=== PATIENT | female | born 1970 ===

== ENCOUNTER → 2021-01-26 08:06 | Outpatient (BNVA) | payer BC, SELFPAY | PROVIDERS: PCP Internal Medicine; Visit Provider Advanced Practice Midwife ==

== ENCOUNTER 2021-03-11 16:29 | Outpatient (REF) | payer BC, SELFPAY ==
--- NOTE | ~2021-03-11 | MM_ITS ---
EXAMINATION: MM SCREENING DIGITAL BREAST TOMOSYNTHESIS, BILATERAL CLINICAL INFORMATION: Screening. Asymptomatic. Prior history reduction mammoplasty. Family history breast cancer, mother. The lifetime risk of breast cancer based on the Tyrer-Cuzick Model is 15%. COMPARISON: Outside mammography: 04/23/2016, 01/09/2015 TECHNIQUE: Digital breast tomosynthesis is performed in both the craniocaudal and mediolateral oblique views along with computer-aided detection (CAD). Synthesized 2D images are generated from the tomosynthesis. FINDINGS: There are scattered areas of fibroglandular density (ACR BI-RADS breast composition Category b). Parenchymal pattern is similar to prior outside exams. There is no developing density or interval significant mass or architectural abnormality or abnormal calcifications. Some minor scarring is present consistent with the prior reduction mammoplasty. The axilla and skin contours are unremarkable. MM/MM tomosynthesis screening BI IMPRESSION: No significant changes from prior outside exams. ASSESSMENT: BI-RADS 2: Benign RECOMMENDATION: Routine annual mammography screening. This patient's information was entered into a reminder system with a target due date for their next mammogram.
== END 2021-03-11 16:30 | disposition home or self-care (01) ==
LOC: HO.MAMMO 16:29
PROVIDERS: Visit Provider Internal Medicine
DX: Z12.31 Encounter for screening mammogram for malignant neoplasm of breast (principal)
CPT/HCPCS: 77063; 77067

== ENCOUNTER 2022-01-27 08:51 | Outpatient (REF) | payer BC, SELFPAY ==
[2022-01-29 18:01] LABS: Follicle Stimulating Hormone 137.5 mIU/mL
== END 2022-01-27 08:52 | disposition home or self-care (01) ==
LOC: HO.LAB 08:51
PROVIDERS: PCP Internal Medicine; Visit Provider Advanced Practice Midwife
DX: R23.2 Flushing (principal)
CPT/HCPCS: 36415; 83001

== ENCOUNTER 2023-02-01 08:15 | Outpatient (AMB) | payer BC, SELFPAY ==
--- NOTE | 2023-02-01 08:21 | MHC.OFFVIS ---
Intake Vital Signs 02/01/23 08:23 Height 5 ft 4 in Weight 166 lb BMI 28.5 BP 120/70 Intake Visit Reasons: Annual Intake Note: The patient agreed to use of a nuclear medical tech during this encounter. Scribed for KOJO Espinoza by Hien Beasley nuclear medical tech, on 02/01/2023 at 8:37 am EST. Trial Attorney: Trial Attorney Present (Christine) Allergies No Known Allergies Allergy (Verified 02/01/23 08:23) HPI HPI Comments History of Present Illness Details She is a postmenopausal woman presenting for annual exam. Doing well with no gynecology teacher concerns. Patient admits she tries to eat a healthy diet including Calcium and Vitamin D. She stays active with exercise. Currently sexually active. Denies vaginal itching and irritation. Admits vaginal dryness and is using a vaginal product that she inserts the night before. Denies family hx of colon and ovarian cancer. Last pap smear 06/04/16. Last mammogram 03/11/21. PFSH Medical History Menopausal vaginal dryness Adopted Insomnia Hypertension History of anxiety Ovarian cyst Surgical History History of left oophorectomy Hx of section H/O bilateral breast reduction surgery History of hysterectomy Family History Unknown Adopted Mother History of breast cancer Sarcoidosis Social History Alcohol intake: current Alcohol intake frequency: a few times a week Alcohol type: wine Patient Tobacco Use Status: Never used Tobacco Sexual orientation: Straight/Heterosexual Gender identity: Female Female Reproductive History Menstrual Menopause type: surgical Total pregnancies: 3 Full term: 2 Number of Living Children: 2 Date of last pap smear: 06/04/16 (neg pap and hpv) Date of Mammogram: 03/11/21 (Birad 2) Physical Exam Vital Signs: Last Vital Signs BP 120/70 02/01/23 08:23 BMI result Body Mass Index 28.5 Const General: cooperative, healthy appearing, no acute distress, well developed and alert Orientation/consciousness: patient oriented x3 HEENT Head: Yes normal to inspection Eyes General: appearance normal, both eyes and all related structures Neck Neck: Yes normal visual inspection Thyroid: Thyroid normal Chest Other: bilateral breast reconstruction scarring Chest palpation & inspection: normal inspection of the chest Breast/axilla inspection: normal inspection of the breasts (no puckering, dimpling, peau de orange, retraction, discharge, masses) Breast/axilla palpation: normal palpation of the breasts Resp Effort & Inspection: normal respiratory effort GI Inspection: Yes normal to inspection Palpation (GI): Soft to palpation (to palpation) Rectal Exam - Female: deferred General: Yes bladder normal to inspection External Female Exam: normal external appearance and normal appearance of the urethra Speculum Exam - Vagina: normal appearance of the vagina, normal palpation, normal vaginal discharge and other Speculum Exam - Cervix: Cervix absent and Other cervical findings present (vag cuff; no lesions no nodules) Bimanual exam- vagina & uterus: normal palpation and uterus absent Bimanual Exam- Adnexa, other: normal adnexae and no masses Skin General skin exam: no rashes or lesions noted Neuro General: patient oriented x3 Cognition (Neuro): normal cognition Extrem General: Yes normal to inspection Psych Attitude: cooperative Thought process: Normal thought process present Assessment & Plan Assessment & Plan (1) Encounter for well woman exam: Code(s): Z01.419 - Encounter for gynecological examination (general) (routine) without abnormal findings Plan: Discussed: Current recommendations for pap smears per ASCCP guidelines. Breast awareness and periodic self breast exams. Encouraged yearly mammograms. Maintaining a healthy lifestyle including a well balanced diet including Calcium and Vitamin D and routine exercise. All of her questions and concerns were addressed to the best of my ability. RTO in 1 year for AG. (2) Menopausal vaginal dryness: Code(s): N95.1 - Menopausal and female climacteric states Plan: Recommend Replens (moisturizer or lubricant), KY jelly, Astroglide or coconut oil for vaginal dryness. Orders: Orders MM tomosynthesis screening BI Today Z12.31 - Encounter for screening mammogram for malignant neoplasm of breast Coding Level of Care Code Est Pt Prev Care 40-64y(74890) Diagnoses Encounter for well woman exam Z01.419 Menopausal vaginal dryness N95.1
[2023-02-01 08:23] VITALS: BP 120/70; BMI 28.5
== END 2023-02-01 08:54 | disposition home or self-care (01) ==
PROVIDERS: Visit Provider Advanced Practice Midwife
DX: Z01.419 Encounter for gynecological examination (general) (routine) without abnormal findings (principal); N95.1 Menopausal and female climacteric states
CPT/HCPCS: 99396

== ENCOUNTER → 2023-02-01 08:15 | Outpatient (BNVA) | payer BC, SELFPAY | PROVIDERS: Visit Provider Advanced Practice Midwife ==

== ENCOUNTER 2023-02-05 08:51 | Outpatient (REF) | payer BC, SELFPAY ==
--- NOTE | ~2023-02-05 | MM_ITS ---
EXAMINATION: MM SCREENING DIGITAL BREAST TOMOSYNTHESIS, BILATERAL CLINICAL INFORMATION: Screening. Asymptomatic. COMPARISON: Mammography: This study is compared with prior exams dating back to 2016. TECHNIQUE: Digital breast tomosynthesis is performed in both the craniocaudal and mediolateral oblique views along with computer-aided detection (CAD). Synthesized 2D images are generated from the tomosynthesis. FINDINGS: The breasts are almost entirely fatty (ACR BI-RADS breast composition Category a). There are no significant masses, abnormal calcifications, or other abnormalities. MM/MM tomosynthesis screening BI IMPRESSION: No mammographic evidence of malignancy. ASSESSMENT: BI-RADS BI-RADS 1 - Negative RECOMMENDATION: Routine annual mammography screening. 1 year F/U This examination should not preclude the clinical evaluation of a suspicious palpable abnormality. This patient's information was entered into a reminder system with a target due date for their next mammogram.
== END 2023-02-05 08:52 | disposition home or self-care (01) ==
LOC: HO.MAMMO 08:51
PROVIDERS: Referring Provider Advanced Practice Midwife; Visit Provider Internal Medicine
DX: Z12.31 Encounter for screening mammogram for malignant neoplasm of breast (principal)
CPT/HCPCS: 77063; 77067

== ENCOUNTER → 2023-02-05 09:00 | Outpatient (BNV) | payer BC, SELFPAY | PROVIDERS: Referring Provider Advanced Practice Midwife; Visit Provider Radiology Diagnostic Radiology | DX: Z12.31 Encounter for screening mammogram for malignant neoplasm of breast (principal) | CPT/HCPCS: 77063; 77067 ==

== ENCOUNTER 2024-02-07 09:52 | Outpatient (AMB) | payer BC, SELFPAY ==
--- NOTE | 2024-02-07 09:54 | A.OFFVIS_ITS ---
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 She is doing well with no concerns. Attempting to eat a healthy diet with calcium and vitamin D and stays active with exercise. Currently sexually active. Admits to vaginal dryness uses Bonofide, somewhat helpful. Hysterectomy due to fibroids and heavy bleeding. Last mammogram; 2022. Colonoscopy is UTD. Patient is adopted. [facility] Medical History (Updated 02/07/24 @ 10:08 by Lianne Nance CNM) Menopausal vaginal dryness Adopted Insomnia Hypertension History of anxiety Ovarian cyst Surgical History (Updated 02/07/24 @ 10:02 by CHELSEA Tellez) History of left oophorectomy Hx of section H/O bilateral breast reduction surgery History of hysterectomy Family History Unknown Adopted Mother History of breast cancer Sarcoidosis Social History Alcohol intake: current Alcohol intake frequency: a few times a week Alcohol type: wine Patient Tobacco Use Status: Never used Tobacco Sexual orientation: Straight/Heterosexual Gender identity: Female Female Reproductive History Menstrual Menopause type: surgical Total pregnancies: 3 Full term: 2 Number of Living Children: 2 Date of last pap smear: 06/04/16 (neg pap and hpv) Date of Mammogram: 02/05/23 (Birad 1) Review of Systems Const All systems reviewed & are unremarkable except as noted in HPI and below Reports as per HPI Eyes Reports no additional complaints ENT Reports no additional complaints Card Reports no additional complaints Resp Reports no additional complaints GI Reports as per HPI and Reports no additional complaints Reports as per HPI Musc Reports no additional complaints Skin/Breast Reports as per HPI Neuro Reports no additional complaints Psych Reports no additional complaints Endo Reports no additional complaints Wolf/Lymph Reports no additional complaints Aller/Immun Reports no additional complaints Physical Exam Vital Signs: Last Vital Signs BP 120/72 02/07/24 09:59 BMI result Body Mass Index 25.4 Const General: cooperative, healthy appearing, no acute distress, well developed and alert Orientation/consciousness: patient oriented x3 HEENT Head: Yes normal to inspection Eyes General: appearance normal, both eyes and all related structures Neck Neck: Yes normal visual inspection Thyroid: Thyroid normal Chest Other: Bilateral breast reduction scarring Chest palpation & inspection: normal inspection of the chest and other (no puckering, dimpling, peau de orange, retraction, discharge, masses) Breast/axilla inspection: normal inspection of the breasts Breast/axilla palpation: normal palpation of the breasts Resp Effort & Inspection: normal respiratory effort GI Inspection: Yes normal to inspection Palpation (GI): Soft to palpation Rectal Exam - Female: deferred General: Yes bladder normal to palpation External Female Exam: normal external appearance and normal appearance of the urethra Speculum Exam - Vagina: normal appearance of the vagina, normal palpation, normal vaginal discharge and vagina atrophic (Scattered petechiae) Speculum Exam - Cervix: Cervix absent (Vaginal cuff no lesions or nodules) Bimanual exam- vagina & uterus: normal bimanual exam, normal palpation, bladder normal to palpation and uterus absent Bimanual Exam- Adnexa, other: no masses Skin General skin exam: no rashes or lesions noted Rashes: no rashes Neuro General: patient oriented x3 Cognition (Neuro): normal cognition Extrem General: Yes normal to inspection Psych Attitude: cooperative Thought process: Normal thought process present Assessment & Plan Assessment & Plan (1) Encounter for well woman exam with routine gynecological exam: Code(s): Z01.419 - Encounter for gynecological examination (general) (routine) without abnormal findings Category: Medical (2) Menopausal vaginal dryness: Code(s): N95.1 - Menopausal and female climacteric states Category: Medical (3) Vaginal atrophy: Code(s): N95.2 - Postmenopausal atrophic vaginitis Plan Discussed: Current recommendations for pap smears per ASCCP guidelines. Breast awareness, periodic self breast exams and yearly mammogram. Maintain a healthy lifestyle, well balanced diet including Calcium 1,200 mg and Vitamin D 600 IU daily, and routine exercise. Vaginal atrophy-OTC treatments including current method, Replens moisturizer, topical estrogen-consider if needed would need a follow up consult appointment. We will speak to her who is a pharmacist. Patient verbalizes understanding and agrees to the plan of care. She was given opportunity to ask questions and all questions were answered to the best of my ability. RTO in 1 year for annual curriculum consultant exam. This note is constructed using voice recognition software. While every effort has been made to ensure accuracy, wind energy engineer errors may have been included. Orders: Orders MM tomosynthesis screening BI Today Z12.31 - Encounter for screening mammogram for malignant neoplasm of breast Coding Level of Care Code Est Pt Prev Care 40-64y(49839) Diagnoses Encounter for well woman exam with routine gynecological exam Z01.419 Menopausal vaginal dryness N95.1 Vaginal atrophy N95.2
[2024-02-07 09:59] VITALS: BP 120/72; BMI 25.4
== END 2024-02-07 12:21 | disposition home or self-care (01) ==
PROVIDERS: PCP Internal Medicine; Visit Provider Advanced Practice Midwife
DX: Z01.419 Encounter for gynecological examination (general) (routine) without abnormal findings (principal); N95.1 Menopausal and female climacteric states; N95.2 Postmenopausal atrophic vaginitis
CPT/HCPCS: 99396

== ENCOUNTER → 2024-02-07 09:52 | Outpatient (BNVA) | payer BC, SELFPAY | PROVIDERS: PCP Internal Medicine; Visit Provider Advanced Practice Midwife ==

== ENCOUNTER 2024-02-11 08:41 | Outpatient (REF) | payer BC, SELFPAY ==
--- NOTE | ~2024-02-11 | MM_ITS ---
EXAMINATION: MM SCREENING DIGITAL BREAST TOMOSYNTHESIS, BILATERAL CLINICAL INFORMATION: Screening. Asymptomatic. COMPARISON: Mammography: Comparison is made with available priors TECHNIQUE: Digital breast mammography with tomosynthesis is performed in both the craniocaudal and mediolateral oblique views along with computer-aided detection (CAD). FINDINGS: There are scattered areas of fibroglandular density (ACR BI-RADS breast composition Category b). There are no significant masses, abnormal calcifications, or other abnormalities. MM/MM tomosynthesis screening BI IMPRESSION: No mammographic evidence of malignancy. ASSESSMENT: BI-RADS BI-RADS 1 - Negative RECOMMENDATION: Routine annual mammography screening. 1 year F/U This examination should not preclude the clinical evaluation of a suspicious palpable abnormality. This patient's information was entered into a reminder system with a target due date for their next mammogram. Electronically signed by: Ivonne Stuart DO 02/22/2024 04:22 PM EDT
== END 2024-02-11 08:42 | disposition home or self-care (01) ==
LOC: HO.MAMMO 08:41
PROVIDERS: PCP Internal Medicine; Visit Provider Internal Medicine
DX: Z12.31 Encounter for screening mammogram for malignant neoplasm of breast (principal)
CPT/HCPCS: 77063; 77067

== ENCOUNTER → 2024-02-11 08:45 | Outpatient (BNV) | payer BC, SELFPAY | PROVIDERS: PCP Internal Medicine; Visit Provider Internal Medicine | DX: Z12.31 Encounter for screening mammogram for malignant neoplasm of breast (principal) | CPT/HCPCS: 77063; 77067 ==

== ENCOUNTER 2025-02-16 09:53 | Outpatient (REF) | payer BC, SELFPAY ==
--- OUTSIDE RECORDS SUMMARY | 2025-02-16 09:55 | XMS_ITS | Encounter Summary ---
Author Organization [facility] Address [address] [place] [address] Phone Care Team Providers Care Inspector Insulation Name Role Phone Jessica Wallace PATIENT CARE ASSISTANT Unavailable [phone] Sam Ch MD Unavailable Joe Godoy MD Unavailable Cassy Haas STREET SUPERVISOR Unavailable Jessie Joseph MD Unavailable Jessie Arreola PATIENT CARE ASSISTANT Unavailable [phone] Riky Verde MD Unavailable Gabbi Yeager PATIENT CARE ASSISTANT Unavailable [phone] Joe Godoy MD Primary Care Provider Joe Godoy MD Unavailable Lianne Nance I CNM Unavailable Encounter Details Date Type Department Care Team (Late st Contact Info) Description 08/18/2017 Ancillary Orders Virtual Department [address] [place] [address] [phone] Rigoberto Baugh MD [address] [place] [address] [email or web address] Elevated LFTs; Abnormal results of liver function studies Social History Tobacco Use Types Packs/Day Years Used Date Smoking Tobacco: Former Cigarettes 0.3 4 Smokeless Tobacco: Never Comments:quit in 1993 Alcohol Use Standard Drinks/Week Comments Yes 2 (1 standard drink = 0.6 oz pur e alcohol) Comments Unknown Sex and Gender Information Value Date Recorded Sex Assigned at Not on file Legal Sex Female 9:33 PM EDT Gender Identity Not on file Sexual Orientation Not on file documented as of this encounter Plan of Treatment Upcoming Encounters Date Type Department Care Team (Late st Contact Info) Description 03/06/2025 9:30 AM EDT Office Visit [facility] Internal Medicine [address] [place] [address] Joe Godoy MD [address] [place] [address] [email or web address] documented as of this encounter Visit Diagnoses Diagnosis Elevated LFTs Other abnormal blood chemistry Abnormal results of liver function studies Nonspecific abnormal results of liver function study documented in this encounter Care Teams Inspector Insulation Relationship Specialty Start Date End Date Joe Godoy MD [address] [place] [address] [email or web address] PCP - General 02/21/17 Jessica Wallace NP [address] [place] [address] [email or web address] Historical LMR Provider 02/21/17 Sam Ch MD [address] [place] [address] [address], [address] [place] [address] Historical LMR Provider 02/21/17 05/16/21 Joe Godoy MD [address] [place], [place] Historical LMR Provider 02/21/17 08/23/21 luz Cassy SaludRANDOLPH [address] [facility]. [address], [address] [place] [address] Historical LMR Provider 02/21/17 05/16/21 Jessie Joseph MD [address] [facility] [address], [address] [place] [address] Historical LMR Provider 02/21/17 05/16/21 Jessie Arreola, CAROLE [address] [place] [address] [address] [place] [address] Historical LMR Provider 02/21/17 2 Riky Verde MD [address] [place] [address] [address] [place] [address] Historical LMR Provider 02/21/17 2 Gabbi Yeager NP [address] [place] [address] 6 [place] [address] Historical LMR Provider 02/21/17 08/23/21 Joe Godoy MD [address] [place] [address] Insurance Assigned Provider 08/13/23 Lianne Nance CNM [address] [place] [address] [place] [address] Obstetrics 08/24/21 documented as of this encounter Additional Source Comments The information contained in this document represents components of the legal health record. It is not the complete legal health record.[facility]
--- OUTSIDE RECORDS SUMMARY | 2025-02-16 09:55 | XMS_ITS | Encounter Summary ---
Author Organization [facility] Address [address] [place] [address] Phone Care Team Providers Care Speech Clinician Name Role Phone Joe Godoy MD Primary Care Provider [phone] Joe Godoy MD Unavailable [phone] Lianne Nance I [facility] Unavailable [phone] Reason for Visit * Reason Onset Date Comments Referral 03/07/2024 Pt is requesting a referral to see ophthalmology Encounter Details Date Type Department Care Team (Late st Contact Info) Description 03/07/2024 Telephone [facility] Internal Medicine [address] [place] [address] Joe Godoy MD [address] [place] [address] [email or web address] Referral (Pt is requesting a referral to see ophthalmology) Social History Tobacco Use Types Packs/Day Years Used Date Smoking Tobacco: Former Cigarettes 0.3 4 1 990 - 1993 Smokeless Tobacco: Never Alcohol Use Standard Drinks/Week Comments Yes 2 (1 standard drink = 0.6 oz pur e alcohol) Child or Family Care Answer Date Record ed Do you have problems with on e of the following making it difficult for you to work, study, or receive health care? No 11/01/2023 Education Answer Date Recorded Are you interested in help w ith more adult education (for example, completing high school, GED, job training, learning the Syriac language, technical skills, or developing parenting skills)? No 11/01/2023 Are you concerned about learning? Not on file 11/01/2023 No 11/01/2023 Yes 11/01/2023 Food Answer Date Recorded Within the past 6 months we worried whether our food would run out before we got money to buy more. Never True 11/01/2023 Within the past 6 months the food we bought just didn't last and we didn't have enough money to get more. Never True Residential Stability Answer Date Recor ded What is your housing situation today? I have pat verma 11/01/2023 How many times have you moved in the past 12 tue th? One time 11/01/2023 Paying for Meds Answer Date Recorded Do you have trouble paying for medicines? No 11/01/2023 Paying Utility Bills Answer Date Record ed Do you have trouble paying your heating or elect ricity bill? No 11/01/2023 Transportation Answer Date Recorded Has the lack of transportati on kept you from medical appointments or from getting medications? No 11/01/2023 Unemployment Answer Date Recorded Are you currently unemployed or working on a part-time or temporary basis, and looking for work? No 08/24/2021 Digital Access Answer Date Recorded No 11/01/2023 Yes 11/01/2023 Do you have reliable internet access at home? Ye s 11/01/2023 Do you have a device (e.g., phone, tablet, computer) with a working camera? Yes 11/01/2023 Intimate Partner Violence Answer Date R ecorded Denied Basic Needs Not on file 11/01/2023 In the past 12 months have y ou been in a relationship with a person who hurts, threatens, or tries to control you? No 11/01/2023 Worried food would run out Not on file 10/31 In the past 12 months have y ou been in a relationship with a person who hurts, threatens, or tries to control you? No 11/01/2023 Comments No Sex and Gender Information Value Date Recorded Sex Assigned at Not on file Legal Sex Female 9:33 PM EDT Gender Identity Not on file Sexual Orientation Not on file documented as of this encounter Progress Notes * Aniket Johnson - 03/13/2024 8:14 AM EST Patient scheduled with Melissa for 03/14 * Joe Godoy MD - 03/12/2024 7:35 PM EST How does she know it is a nodule? ENT is booking out 6-9 months currently. Can come in and see Melissa. * Ce Alvarez RN - 03/12/2024 7:15 AM EST Pended * Frederick Milligan - 03/07/2024 3:25 PM EDT Referral Request 1. Name of the office where the patient has been seen/requests to be seen: [facility] 2. Reason for referral/specialist appointment and the diagnosis code: Throat 2A. Have you seen this provider before for this same problem? YES/NO: no 2B. If this is a new problem, is your PCP aware of your symptoms? YES/NO: no 3. Date of appointment(s):TBD 4. Name of specialist provider: Dr. Huber Camacho 5. NPI number to enter for referral authorization (enter n/a if not available): [id number] 6. Number of visits requested for referral: TBD 7. Fax number of specialist office to send referral authorization: [phone] [facility] Call Center CSS Agent (Please do not reply to this user, as this inbox is not monitored.) Thank you documented in this encounter Plan of Treatment Upcoming Encounters Date Type Department Care Team (Late st Contact Info) Description 03/06/2025 9:30 AM EDT Office Visit [facility] Internal Medicine [address] [facility] [address] Joe Godoy MD [address] [place] [address] [email or web address] documented as of this encounter Visit Diagnoses Not on filedocumented in this encounter Additional Health Concerns Assessment Noted Time PHQ-9 Depression Total Score: 11 023 8:24 AM EDT PHQ-2 Depression Total Score: 0 11/01/19 24 11:12 AM EDT documented as of this encounter Care Teams Speech Clinician Relationship Specialty Start Date End Date Joe Godoy MD [address] [place] [address] PCP - General 02/21/17 Joe Godoy MD [address] [place] [address] Insurance Assigned Provider 08/13/23 Lianne Nance CNM [address] [place] [address] [place] [address] Obstetrics 08/24/21 documented as of this encounter Additional Source Comments The information contained in this document represents components of the legal health record. It is not the complete legal health record.[facility]
--- OUTSIDE RECORDS SUMMARY | 2025-02-16 09:55 | XMS_ITS | Patient Health Record ---
Author Organization [facility] Address [address] [place] [address] Care Team Providers Care Soft Top Installer Name Role Phone Joe Godoy MD Primary Care Provider Pedro Bernard Unavailable [phone] Reason For Referral No Information Medications Medication SIG (Take, Route, Frequency, Duration) Notes Start Date End Date Status Magnesium Oxide 400 MG 1 tablet as neede d Orally Once a day; Duration: 30 day(s) Active Ibuprofen 800 MG 1 tablet with food o r milk as needed Orally every 8 hrs Active Ipratropium [place] 0.06 % 2 sprays in e ach nostril Nasally Three times a day; Duration: 4 day(s) Active traZODone HCl 50 MG as directed Orally Active LORazepam 1 MG 1 tablet at bedtime as needed Orally Once a day Active Flonase Active Joint Health Active CeleXA 40 MG 0.5 tablet Orally On ce a day; Duration: 30 day(s) Active Multivitamin Active NIFEdipine ER 30 MG 1 tablet on an empty stomach Orally Once a day; Duration: 30 day(s) Active Triamcinolone Acetonide 0.1 % 1 application Externally Two times a Week Active Zolpidem Tartrate 10 MG 1 tablet at bedt kevin as needed Orally Once a day Active Adderall XR 30 MG 1 capsule in the mor amanda Orally Once a day Active Ketoconazole 2 % 1 application Switching Operator ally Once a day Active Citalopram Hydrobromide 40 MG 0.5 tablet Orally Once a day; Duration: 30 day(s) Active Losartan Potassium A ctive Losartan Potassium 25 MG 1 tablet Orally Once a day; Duration: 30 day(s) Active Fluticasone Propionate 50 MCG/ACT 1 spray in each nostril Nasally Once a day; Duration: 30 day(s) Active NIFEdipine Active Social History Tobacco Use: Social History Observation Description Date Details (start date - stop date) Former Smoker NA - 05/09/1993 Tobacco Use/Smoking Question Answer Notes Are you a: former smoker When did you stop smoking? 05/09/1993 Additional Findings: Tobacco Non-User Ex-cigaret te smoker Alcohol Screen Question Answer Notes Did you have a drink contain ing alcohol in the past year? Yes How often did you have a dri nk containing alcohol in the past year? 2 to 3 times a week (3 points) Points 3 Interpretation Positive Plan Of Treatment Pending Test Test Name Order Date X ray : Foot, right 3V 12/22/2021 Insurance Providers Payer Name Payer Address Payer Phone Subscriber Number Group Number Insured Name Patient Relationship to Insured Coverage Start Date Coverage End Date [facility] [address] [place] [address] [id number] Emanuel Rivers Self - patient is the insured Medical (General) History Medical History History ICD Code Hypertension, benign Depression Mixed Hyperlipidemia Vitamin D deficiency malaise fatigue Surgical History Surgery Date(Month/Year) 200,2002 breast reduction 2009 hysterectomy 2019 Dermoid cyst 2016
--- OUTSIDE RECORDS SUMMARY | 2025-02-16 09:55 | XMS_ITS | Encounter Summary ---
Author Organization [facility] Address [address] [place] [address] Phone Care Team Providers Care Budget Controller Name Role Phone Joe Godoy MD Primary Care Provider [phone] Joe Godoy MD Unavailable [phone] Lianne Nance I [facility] Unavailable [phone] Reason for Visit * Reason Onset Date Comments Medication Refill 02/12/2025 CSRP Encounter Details Date Type Department Care Team (Late st Contact Info) Description 02/12/2025 Refill [facility] Internal Medicine [address] [place] [address] Joe Godoy MD [address] [place] [address] [email or web address] Medication Refill (CSRP) Social History Tobacco Use Types Packs/Day Years Used Date Smoking Tobacco: Former Cigarettes 0.3 4 1 990 - 1994 Smokeless Tobacco: Never Alcohol Use Standard Drinks/Week [...] high school, GED, job training, learning the [place] language, technical skills, or developing parenting skills)? [...] you moved in the past 12 tue ths? One time 11/01/2023 Paying for Meds Answer [...] as of this encounter Progress Notes * Nigel Mansfield MA - 02/12/2025 9:00 AM EDT Images from the original note were not included. CSRP Adderall XR 30 mg Due: Today Received: 4 weeks ago Patient reminder Nigel Mansfield MA P [facility] See TE 01/14/25, Rx to be filled on 01/22/25Rx Care Gap Status - Instructions for Clinical Staff (prescriber discretion applies): > Mismatch review guide > N/a - No action needed Visit Info Last visit: 05/08/2024 Joe Godoy MD - Internal Medicine [facility] > Requested f/u: Return in about 6 months (around 11/05/2024) for Annual physical. Upcoming visit: 03/06/2025 Joe Godoy MD - Internal Medicine [facility] ACTIONS TAKEN BY Nigel Mansfield MA - Checked PDMP/[place]. Non-Opioid Controlled Substance Without PDMP Rx Protocol - dextroamphetamine/amphetamine Renewal is at prescriber discretion. Visit in the past 12 months: Yes documented in this encounter Plan of Treatment Upcoming Encounters Date Type Department Care Team (Late st Contact Info) Description 03/06/2025 9:30 AM EDT Office Visit [facility] Internal Medicine [address] [place] [address] Joe Godoy MD [address] [place] [address] [email or web address] documented as of this encounter Visit Diagnoses Diagnosis Attention deficit disorder Attention deficit disorder without mention of hyperactivity documented in this encounter Additional Health Concerns Assessment Noted Time PHQ-9 Depression Total Score: 11 08/30/ 023 8:24 AM EDT PHQ-2 Depression Total Score: 0 11/01/19 24 11:12 AM EDT documented as of this encounter Care Teams Budget Controller Relationship Specialty Start Date End Date Joe Godoy MD [address] [place] [address] [email or web address] PCP - General 02/21/17 Joe Godoy MD [address] [place] [address] [email or web address] Insurance Assigned Provider 08/13/23 Lianne Nance CNM [address] [place] [address] [place] [address] Obstetrics 08/24/21 documented as of this encounter Additional Source Comments The information contained in this document represents components of the legal health record. It is not the complete legal health record.[facility]
--- OUTSIDE RECORDS SUMMARY | 2025-02-16 09:55 | XMS_ITS | Clinical Summary ---
Author Organization [facility] Address [address] [address] Phone Care Team Providers Care Medical Engineer Name Role Phone Joe Godoy MD Primary Care Provider [phone] Joe Godoy MD Unavailable Lianne Nance I [facility] Unavailable [phone] Allergies Active Allergy Reactions Criticality Noted Date Comments Amlodipine Unknown 05/06/2017 Lisinopril Unknown 05/06/2017 Medications fluticasone propionate (FLONASE) 50 mcg/actuation nasal spray 2 sprays by Nasal route as needed. Active ibuprofen (ADVIL,MOTRIN) 800 MG tablet Take 1 tablet (800 mg total) by mouth every 6 (six) hours as needed for pain (specific location in comments). Take with food 40 tablet 11/28/19 20 Active diclofenac sodium (VOLTAREN) 1 % GelIndications:Nolberto n in both hands,Primary osteoarthritis of both hands Apply 2 g topically 4 (four) times a day. 200 g 2 05/10/19 24 Active Additional Information Patient taking differently:2 g TopicalAs needed, Reported on 03/16/2024 traZODone (DESYREL) 50 MG tablet TAKE 1 TABLET NIGHTLY AT BEDTIME 90 tablet 3 03/15/20 24 Active losartan (COZAAR) 25 MG tabletIndications: Benign essential hypertension TAKE 1 TABLET(25 MG) BY MOUTH DAILY 90 tablet 12/22/19 25 Active NIFEdipine (ADALAT CC) 30 MG 24 hr tablet Take 1 tablet (30 mg total) by mouth daily. 30 tablet 01/23/20 25 Active citalopram (CELEXA) 40 MG tabletIndications: Anxiety Take 1 tablet (40 mg total) by mouth daily. 30 tablet 01/23/20 25 Active dextroamphetamine- amphetamine (ADDERALL XR) 30 MG 24 hr capsuleIndications :Attention deficit disorder Take 1 capsule (30 mg total) by mouth every morning for 28 days. 28 capsule 02/20/20 25 025 Active NIFEdipine (ADALAT CC) 30 MG 24 hr tablet Take 1 tablet (30 mg total) by mouth daily. 90 tablet 3 03/29/20 24 025 Discontin ued(Reord er) citalopram (CELEXA) 40 MG tabletIndications: Anxiety TAKE 1 TABLET DAILY 90 tablet 3 10/06/19 25 025 Discontin ued(Reord er) dextroamphetamine- amphetamine (ADDERALL XR) 30 MG 24 hr capsuleIndications :Attention deficit disorder Take 1 capsule (30 mg total) by mouth every morning for 28 days. 28 capsule 01/23/20 25 025 Discontin ued(Reord er) Active Problems Problem Noted Date Diagnosed Date Dysphagia 03/16/2024 Assessment & Plan (03/16/2024 8:26 AM EST): Longstanding, unchanged despite consistent PPI use. No other contributing factors present. Recommend ENT evaluation. She will note if any particular consistencies of food/drink make symptoms worse/better prior to this visit. If any worsening sx she will follow up with office. If any acutely worsening symptoms will follow up emergently. ARIE (obstructive sleep apnea) 02/20/2022 Hypersomnia 09/21/2021 Malaise and fatigue 04/14/2021 Assessment & Plan (04/14/2021 9:21 AM EST): A post viral syndrome with Covid is very common to have a protracted course of fatigue, let us rule out B12 deficiency, hypothyroidism and anemia as a possible cause. Would encourage the patient to take up yoga again as a form of exercise that will help with the stressors of school which will decrease her dependence on Ativan. The exercise will help also with a normal sleep cycle and might overall reduce the fatigue. She may feel very tired from the exercise but this is a exercise that actually in the long run might help her out of this vicious cycle. Muscle spasm 04/14/2021 Assessment & Plan (04/14/2021 9:19 AM EST): Patient seems to be describing clonic like activity resulting in these spasms. Therefore check electrolytes kidney function and magnesium level. Recommend 400 mg nightly of magnesium to aid with sleep and reduce such symptoms at night. Dermatofibroma 07/11/2020 Assessment & Plan (07/11/2020 4:37 PM EST): This lesion that she presents with left-sided index finger dorsal aspect and proximal to the cuticle bordering on it looks like a dermatofibroma. Possible that it is a basal cell CA but is missing a lot of the traits that we see with BCC. It does not have the rough qualities of a wart. For any type of lesion like this to remove it it would best be used cryotherapy liquid nitrogen. Unfortunately we do not have any here so she may need to see a retail grocer but she can also try the cryotherapy offered at the pharmacy which is usually either based. She will try that and I told her to follow the directions meticulously and do not overuse the ether as I could hurt the surrounding skin tissue. If not we can refer the patient to dermatology for both a second look and cryotherapy. Anxiety 05/06/2017 Assessment & Plan (04/14/2021 9:18 AM EST): Patient should be mindful about the use of the Ativan which of course can cause further fatigue and sleepiness being a sedative. That of course also in conjunction with the citalopram. Edema of both legs 05/06/2017 Essential hypertension 05/06/2017 Gastroesophageal reflux disease 05/06/2017 Hyperhidrosis 05/06/2017 Hyperlipidemia 05/06/2017 Migraine without aura and responsive to treatmen t 05/06/2017 Primary insomnia 05/06/2017 Pure hypercholesterolemia 05/06/2017 Vitamin B12 deficiency 05/06/2017 Vitamin D deficiency 05/06/2017 Resolved Problems Problem Noted Date Diagnosed Date Resolved Date CPAP (continuous positive ai rway pressure) dependence 02/20/2022 11/01/2023 Overactive child 05/06/2017 11/19/2021 Encounters Date Type Department Care Team Description 02/12/2025 Refill [facility] Internal [facility] [address] [place] [address] Joe Godoy MD Medication Refill (CSRP) 01/22/2025 Refill [facility] Internal Medicine [address] [place] [address] Joe Godoy MD Medication Refill 01/14/2025 Refill [facility] Internal [facility] [address] [place] [address] Joe Godoy MD Medication Refill (CSRP) 12/21/2024 Refill [facility] [address] [place] [address] Tiffanie Baez, ALAN Medication Refill 12/17/2024 Refill [facility] [address] [place] [address] Joe Godoy MD Medication Refill (CSRP) 11/19/2024 Refill [facility] Internal [facility] [address] [place] [address] Joe Godoy MD Medication Refill from Last 3 Months Immunizations Immunization Administration Dates Next Due COVID-19 (Pre-02/28) Reese Vaccine, [id number], P F 07/26/2020 Td (adult),2 Lf Tetanus Toxoid, PF, Adsorbed Td, unspecified formulation 05/09/1998 Tdap 05/05/2012 Zoster recombinant 03/03/2024,11/07/2023 Family History * Patient is adopted Medical History Relation Comments Breast cancer Mother Cancer Mother Lung disease Mother Sarcoidosis Mother Alcohol abuse Son 2 Relation Status Comments Father Alive Mother (Age 75) breast cancer and liposarcomadied at 75 y/o d/t Sarcoidosis Son 1 Alive Son 2 Alive Social History Tobacco Use Types Packs/Day Years Used Date Smoking Tobacco: Former Cigarettes 0.3 4 1 990 - 1994 Smokeless Tobacco: Never Tobacco Cessation:Counseling Given: Not Answered Alcohol Use Standard Drinks/Week Comments Yes 2 [...] high school, GED, job training, learning the [place] language, technical skills, or developing parenting skills)? [...] on file Sexual Orientation Not on file Last Filed Vital Signs Vital Sign Reading Time Taken Comments Blood Pressure 120/78 05/08/2024 1:26 PM EST Pulse 82 05/08/2024 1:26 PM EST Temperature 36.4 C (97.5 F) 05/08/2024 1:26 PM EST Respiratory Rate 16 05/08/2024 1:26 PM EST Oxygen Saturation 98% 05/08/2024 1:26 PM EST Inhaled Oxygen Concentration - - Weight 68.3 kg (150 lb 9.6 oz) 05/08/2024 1:26 P M EST Height 159.8 cm (5' 2.91 ) 05/08/2024 1:26 PM ES T Body Mass Index 26.75 05/08/2024 1:26 PM EST Plan of Treatment Upcoming Encounters Date Type Department Care Team (Late st Contact Info) Description 03/06/2025 9:30 AM EDT Office Visit [facility] Internal Medicine [address] [place] [address] Joe Godoy MD [address] [place] [address] [email or web address] Health Maintenance Due Date Last Done Comments HIV ONE-TIME SCREENING (18-65 YEARS) 08/09/1989 COLOGUARD 08/09/2016 FIT TEST 08/09/2016 FOBT 08/09/2016 SIGMOIDOSCOPY 08/09/2016 VIRTUAL COLONOSCOPY 08/09/2016 PAP SMEAR 06/04/2021 06/04/2016 PNEUMOCOCCAL VACCINES (50+ years) (1 of 1 - PCV) 08/09/2021 CREATININE LEVEL 10/31/2024 11/01/2023, , 08/24/2021, Additional history exists DEPRESSION SCREENING 10/31/2024 11/01/2023, 08/31/19 POTASSIUM LEVEL 10/31/2024 11/01/2023, 08/08, 08/24/2021, Additional history exists BLOOD PRESSURE 11/05/2024 05/08/2024 COVID-19 VACCINE ( season) 2025 04/29/2021, 07/26/2020 MAMMOGRAM 02/10/2026 02/11/2024, 01/09, 03/11/2021, Additional history exists COLONOSCOPY 02/16/2026 02/16/2023 COLORECTAL CANCER SCREENING 02/16/2026 SCREENING FOR DIABETES 10/31/2026 11/01/2023, 2023 LIPID PANEL 10/31/2028 11/01/2023, 08/08, 08/30/2022, Additional history exists Adult Td,Tdap Booster 08/30/2032 08/30/2022 , 05/05/2012, 05/09/1998 RSV VACCINE (1 - 1-dose 75+ series) 08/09/2046 HEPATITIS C SCREENING Completed 09/15/2018 , 09/15/2018, 09/16/2017, Additional history exists ZOSTER VACCINES Completed 03/03/2024, 11/07/2023 SMOKING STATUS SCREENING (Once After 26 Yrs) Completed 05/08/2024 HEPATITIS A VACCINES Aged Out No long er eligible based on patient's age to complete this topic HIB VACCINES Aged Out No longer eligi ble based on patient's age to complete this topic MENINGOCOCCAL VACCINES (ACWY) Aged Out No longer eligible based on patient's age to complete this topic MENINGOCOCCAL VACCINES (B) Aged Out N o longer eligible based on patient's age to complete this topic Medical Devices Not on file Procedures Procedure Name Priority Date/Time Associated Diagnosis Comments MAMMOGRAPHY Routine 02/11/2024 11:28 AM EDT LIPID PANEL Routine 11/01/2023 12:11 PM EDT Mixed hyperlipidemia COMPREHENSIVE METABOLIC PANEL Routine 11/01/2023 12:11 PM EDT Mixed hyperlipidemia Benign essential hypertension Impaired fasting glucose COLONOSCOPY FOR RESULT ENTRY ONLY Routine 02/16/2023 4:06 PM EDT HEPATITIS C ANTIBODY, QUALITATIVE Routine 09/15/2018 8:16 AM EDT Liver function abnormality from Last 3 Months or Most Recently Relevant to Health Maintenance Results * MAMMOGRAPHY FOR RESULT ENTRY ONLY (02/11/2024 11:28 AM EDT) us Historical Provider HEALTH MAINTENANCE Final Result * (ABNORMAL) Comprehensive metabolic panel (11/01/2023 12:11 PM EDT) SODIUM 139 133 - 146 mmol/L [facility] POTASSIUM 4.1 3.3 - 5.1 mmol/L [facility] CHLORIDE 102 96 - 108 mmol/L [facility] CO2 24 21 - 35 mmol/L [facility] BUN 12 6 - 19 mg/dL [facility] CREATININE 0.60 0.5 - 1.5 mg/dL [facility] GLUCOSE 116(H) 70 - 99 mg/dL [facility] ALBUMIN 4.8 3.9 - 4.8 g/dL [facility] TOTAL PROTEIN 7.4 6.5 - 8.0 g/dL [facility] CALCIUM 9.8 8.4 - 10.3 mg/dL [facility] ALKALINE PHOSPHATASE 94 39 - 117 U/L [facility] TOTAL BILIRUBIN 1.2 0.0 - 1.2 mg/dL [facility] AST 47(H) 0 - 37 U/L [facility] ALT 36 0 - 40 U/L [facility] GLOBULIN 2.6 1 - 4.8 g/dL [facility] EGFR 108 >59 mL/min/1.7 3m2 [facility] Comment:Estimated glomerular filtration rate calculated using the CKD-EPI refit equation. ANION GAP 17 10 - 20 mmol/L [facility] Blood 11/01/2023 12:1 1 PM EDT 11/01/2023 12:15 PM EDT Joe Godoy MD LAB BLOOD ORDERABLES Final Re sult [address] [address] * (ABNORMAL) Lipid panel (11/01/2023 12:11 PM EDT) HDL 82 mg/dL [facility] Comment: Interpretation <40 mg/dL: Low HDL cholesterol (major risk factor for CHD) Greater than or equal to 60 mg/dL: High HDL cholesterol ( negative risk factor for CHD) HDL - cholesterol is affected by a number of factors, e.g. smoking, excerise, hormones, sex and age. CHOLESTEROL 255(H) 0 - 240 mg/dL [facility] TRIGLYCERIDES 133 30 - 160 mg/dL [facility] LDL 146(H) 50 - 129 mg/dL [facility] Comment: LDL levels in terms of risk for coronary heart disease: <100 mg/dL: Optimal 100-129 mg/dL: Near or above optimal 130-159 mg/dL: Borderline high 160-189 mg/dL: High >190 mg/dL: Very High CARDIAC RISK RATIO 3.1(L) 3.3 - 4.4 C [facility] Blood 11/01/2023 12:1 1 PM EDT 11/01/2023 12:14 PM EDT Joe Godoy MD LAB BLOOD ORDERABLES Final Re sult [address] [address] * HM COLONOSCOPY FOR RESULT ENTRY ONLY (02/16/2023 4:06 PM EDT) us Historical Provider HEALTH MAINTENANCE Final Result * Hepatitis C antibody, qualitative (09/15/2018 8:16 AM EDT) HCV Negative Negative [facility] Comment: This is a screening test and should be confirmed with molecular testing Blood 09/15/2018 8:16 AM EDT 09/15/2018 8:22 AM EDT Joe Godoy MD LAB BLOOD ORDERABLES Final Re [facility] Organization Address City/State/ZIP Co de Phone Number [address] [address] from Last 3 Months or Most Recently Relevant to Health Maintenance [place] [address] [place] [address] [place] [address] [place] [address] [place] [address] [place] [address] [place] [address] [place] [address] [place] [address] [place] [address] Care Teams Medical Engineer Relationship Specialty Start Date End Date Joe Godoy MD [address] [place] [address] [email or web address] PCP - General 02/21/17 Joe Godoy MD [address] [place] [address] [email or web address] Insurance Assigned Provider 08/13/23 Lianne Nance CNM [address] [place] [address] [place] [address] Obstetrics 08/24/21 Additional Source Comments The information contained in this document represents components of the legal health record. It is not the complete legal health record.[facility]
--- OUTSIDE RECORDS SUMMARY | 2025-02-16 09:55 | XMS_ITS | Encounter Summary ---
Author Organization [facility] Address [address] [place] [address] Phone Care Team Providers Care Drafter Automotive Design Layout Name Role Phone Jessica Wallace DUCK FARMER Unavailable [phone] Sam Ch MD Unavailable Joe Godoy MD Unavailable [phone] Cassy Haas HOTEL ROOM ATTENDANT Unavailable Jessie Joseph MD Unavailable Jessie Arreola DUCK FARMER Unavailable Riky Verde MD Unavailable [phone] Gabbi Yeager DUCK FARMER Unavailable [phone] Joe Godoy MD Primary Care Provider Joe Godoy MD Unavailable Lianne Nance I CNM Unavailable [phone] Encounter Details Date Type Department Care Team (Late st Contact Info) Description 09/01/2017 Ancillary Orders Virtual Department [address] [place] [address] Rigoberto Baugh MD [address] [place] [address] [email or web address] Elevated LFTs; Abnormal results of liver function [...] Description 03/06/2025 9:30 AM EDT Office Visit [facility] Internal Medicine [address] [place] [address] Joe Godoy MD [address] [place] [address] [email or web address] documented as of this encounter Results * US ABDOMEN LIMITED RIGHT UPPER QUADRANT (09/01/2017 10:51 AM EDT) Anatomical Region Laterality Modality Abdomen Ultrasound 09/01/2017 11:1 4 AM EDT Impressions 09/01/2017 11:19 AM EDT Mildly hyperechoic liver with small area of more normal liver echogenicity adjacent to gallbladder fossa. Appearance is consistent with fatty infiltration with sparing adjacent to the gallbladder fossa. No evidence of hepatic masses. No other significant changes. POS - [id number] Narrative 09/01/2017 11:19 AM EDT HISTORY: Elevated liver function tests. COMPARISON: Right upper quadrant ultrasound 01/30/2016, CT abdomen 03/04/2011. FINDINGS: A right upper quadrant study is performed. Biliary: The gallbladder appears normal. Proximal common duct normal measuring 4 mm in diameter which is stable from 01/30/2016. Liver: The liver is mildly hyperechoic diffusely very similar to 01/30/2016. Small area of more normal liver echogenicity immediately adjacent to the gallbladder fossa which appears stable from prior ultrasound no findings suspicious for hepatic masses. Liver margins are smooth. Similar prominence of the left lobe. Pancreas: No abnormalities demonstrated. Right Kidney: No abnormalities demonstrated. Procedure Note Polino, Homer R, MD - 09/01/2017 HISTORY: Elevated liver function tests. COMPARISON: Right upper quadrant ultrasound 01/30/2016, CT [id number]. FINDINGS: A right upper quadrant study is performed. Biliary: The gallbladder appears normal. Proximal common duct normalmeasuring 4 mm in diameter which is stable from 01/30/2016. Liver: The liver is mildly hyperechoic diffusely very similar to01/30/2016. Small area of more normal liver echogenicity immediatelyadjacent to the gallbladder fossa which appears stable from priorultrasound no findings suspicious for hepatic masses. Liver margins aresmooth. Similar prominence of the left lobe. Pancreas: No abnormalities demonstrated. Right Kidney: No abnormalities demonstrated. IMPRESSION: Mildly hyperechoic liver with small area of more normal liver echogenicityadjacent to gallbladder fossa. Appearance is consistent with fattyinfiltration with sparing adjacent to the gallbladder fossa. No evidenceof hepatic masses. No other significant changes. POS - [id number] us Rigoberto Baugh MD IMG US ABDOMEN Final Result documented in this encounter Visit Diagnoses Diagnosis Elevated LFTs Other abnormal blood chemistry Abnormal results of liver function studies Nonspecific abnormal results of liver function study Elevated LFTs Other abnormal blood chemistry Abnormal results of liver function studies Nonspecific abnormal results of liver function study documented in this encounter Care Teams Drafter Automotive Design Layout Relationship Specialty Start Date End Date Joe Godoy MD [address] [place] [address] [email or web address] PCP - General 02/21/17 Jessica Wallace NP [address] [place] [address] [email or web address] Historical LMR Provider 02/21/17 Sam Ch MD [address] [place] [address]. 204, [address] [place] [address] Historical LMR Provider 02/21/17 05/16/21 Joe Godoy MD [address] [place] [address] Historical LMR Provider 02/21/17 08/23/21 Cassy Haas FNP [address], [address], [address] [place] [address] Historical LMR Provider 02/21/17 05/16/21 Jessie Joseph MD 38 [facility], Doug[address] 204, [address] [place] [address] Historical LMR Provider 02/21/17 05/16/21 Jessie Arreola NP [address] [place] [address] 104 [place] [address] Historical LMR Provider 02/21/17 2 Riky Verde MD [address] [place] [address] [address] [place] [address] Historical LMR Provider 02/21/17 2 Gabbi Yeager NP [address] [place] [address] 6 [place] [address] Historical LMR Provider 02/21/17 08/23/21 Joe Godoy MD [address] [place] [address] [email or web address] Insurance Assigned Provider 08/13/23 Lianne Nance CNM [address] [place] [address] [place] [address] Obstetrics 08/24/21 documented as of this encounter Additional Source Comments The information contained in this document represents components of the legal health record. It is not the complete legal health record.[facility]
--- OUTSIDE RECORDS SUMMARY | 2025-02-16 09:55 | XMS_ITS | Encounter Summary ---
Author Organization [facility] Address [address] [place] [address] Phone Care Team Providers Care Moose Hunter Name Role Phone Jessica Wallace REGULATORY AFFAIRS STRATEGY SPECIALIST Unavailable Sam Ch MD Unavailable Joe Godoy MD Unavailable [phone] Cassy Haas FISHERIES DIRECTOR Unavailable [phone] Jessie Joseph MD Unavailable Jessie Arreola REGULATORY AFFAIRS STRATEGY SPECIALIST Unavailable Riky Verde MD Unavailable Gabbi Yeager REGULATORY AFFAIRS STRATEGY SPECIALIST Unavailable [phone] Joe Godoy MD Primary Care Provider Joe Godoy MD Unavailable Lianne Nance I CNM Unavailable Encounter Details Date Type Department Care Team (Latest Contact Info) Description 09/16/2017 Transcribe Orders [facility] [address] [place] [address] [place] [address] Rigoberto Baugh MD [address] [place] [address] [email or web address] Abnormal results of liver function studies (Primary Dx); Elevated liver enzymes Social History Tobacco Use Types Packs/Day Years [...] Description 03/06/2025 9:30 AM EDT Office Visit [facility] Internal Medicine [address] [place] [address] Joe Godoy MD 40 [place] [address] [email or web address] documented as of this encounter Results * Miscellaneous lab test (09/16/2017 8:15 AM EDT) TESTS REQUESTED TEST ID: FIBRO [facility] SPECIMEN/TUBE TYPE SERUM [facility] REQUEST RECEIVED Request received. A separate order for the requested test will be generated by the laboratory. [facility] Blood 09/16/2017 8:15 AM EDT 09/16/2017 8:37 AM EDT Rigoberto Baugh MD LAB BLOOD ORDERABLES Final Re sult [address] [address] * PT-INR (09/16/2017 8:15 AM EDT) PT 11.4 10.2 - 12.9 sec [facility] INR 1.0 0.9 - 1.1 [facility] Comment:Therapeutic range fo r oral Vitamin K antagonists: 2.0-3.5 Blood 09/16/2017 8:15 AM EDT 09/16/2017 8:22 AM EDT us Rigoberto Baugh MD LAB BLOOD ORDERABLES Final Re sult Performing Organization Address [facility]/ZIP Co de Phone Number [address] [address] * Ferritin (09/16/2017 8:15 AM EDT) FERRITIN 94 13 - 150 ug/L [facility] Blood 09/16/2017 8:15 AM EDT 09/16/2017 8:22 AM EDT us Rigoberto Baugh MD LAB BLOOD ORDERABLES Final Re sult Performing Organization Address [facility] Co de Phone Number [address] [address] * Iron and iron binding capacity (09/16/2017 8:15 AM EDT) IRON 134 30 - 160 ug/dL [facility] IRON BINDING CAPACITY 335 228 - 428 ug/dL [facility] TRANSFERRIN SATURAT. 40 15 - 50 % [facility] Blood 09/16/2017 8:15 AM EDT 09/16/2017 8:22 AM EDT us Rigoberto Baugh MD LAB BLOOD ORDERABLES Final Re sult Performing Organization Address [facility] Co de Phone Number [address] [address] * TSH (09/16/2017 8:15 AM EDT) TSH 1.70 0.27 - 4.20 uIU/mL [facility] Blood 09/16/2017 8:15 AM EDT 09/16/2017 8:22 AM EDT us Rigoberto Baugh MD LAB BLOOD ORDERABLES Final Re sult Performing Organization Address City/[facility]/ZIP Co de Phone Number [address] [address] * (ABNORMAL) LFTs (hepatic panel) (09/16/2017 8:15 AM EDT) ALKALINE PHOSPHATASE 73 39 - 117 U/L [facility] TOTAL BILIRUBIN 0.7 0.0 - 1.2 mg/dL [facility] DIRECT BILIRUBIN <0.2 0 - 0.3 mg/dL [facility] Bilirubin (Indirect) NOT CALCULATED 0 - 1.5 mg/dL [facility] AST 52(H) 0 - 37 U/L [facility] ALT 68(H) 0 - 40 U/L [facility] TOTAL PROTEIN 7.1 6.5 - 8.0 g/dL [facility] ALBUMIN 4.2 3.9 - 4.8 g/dL [facility] GLOBULIN 2.9 1 - 4.8 g/dL [facility] A/G Ratio 1.45 1.00 - 4.80 RATIO [facility] Blood 09/16/2017 8:15 AM EDT 09/16/2017 8:22 AM EDT us Rigoberto Baugh MD LAB BLOOD ORDERABLES Final Re sult [address] [address] * Hepatitis C antibody, qualitative (09/16/2017 8:15 AM EDT) HCV Negative Negative [facility] Comment: This is a screening test and should be confirmed with molecular testing Blood 09/16/2017 8:15 AM EDT 09/16/2017 8:22 AM EDT Rigoberto Baugh MD LAB BLOOD ORDERABLES Final Re sult [address] [address] * Hepatitis B surface antigen (09/16/2017 8:15 AM EDT) HBV SURFACE ANTIGEN Negative Negative [facility] Blood 09/16/2017 8:15 AM EDT 09/16/2017 8:22 AM EDT us Rigoberto Baugh MD LAB BLOOD ORDERABLES Final Re sult [facility] [address] [place] [address] * [id number] phenotyping (09/16/2017 8:15 AM EDT) ALPHA 1 ANTITRYPSIN 130 100 - 190 mg/dL [facility] DPT OF LAB MED AND PAT+ A1A PHENOTYPE MM bands [facility] DPT OF LAB MED AND PAT+ Blood 09/16/2017 8:15 AM EDT 09/16/2017 8:22 AM EDT us Rigoberto Baugh MD LAB BLOOD ORDERABLES Final Re sult [facility] DPT OF LAB MED AND PAT+ [address] [place] [address] * Tissue transglutaminase IgA (09/16/2017 8:15 AM EDT) TTG IGA ANTIBODY <1.2 <4.0 (Negative) U/mL [facility] DPT OF LAB MED AND PAT+ Blood 09/16/2017 8:15 AM EDT 09/16/2017 8:22 AM EDT us Rigoberto Baugh MD LAB BLOOD ORDERABLES Final Re sult [facility] DPT OF LAB MED AND PAT+ [address] [place] [address] * Smooth Muscle Antibody (09/16/2017 8:15 AM EDT) ANTI-SMOOTH MUSCLE AB Negative Negative [facility] DPT OF LAB MED AND PAT+ Comment: (NOTE) ADDITIONAL INFORMATION This test was developed and its performance characteristics determined by [facility] in a manner consistent with CLIA requirements. This test has not been cleared or approved by the U.S. Food and Drug Administration. Blood 09/16/2017 8:15 AM EDT 09/16/2017 8:22 AM EDT Rigoberto Baugh MD LAB BLOOD ORDERABLES Final Re sult Performing Organization Address City/[facility]/ZIP Co de Phone Number [facility] DPT OF LAB MED AND PAT+ [address] [place] [address] * Antinuclear antibody (SANDRA) (09/16/2017 8:15 AM EDT) SANDRA SCREEN ON HEP 2 Negative Negative [facility] Blood 09/16/2017 8:15 AM EDT 09/16/2017 8:22 AM EDT Rigoberto Baugh MD LAB BLOOD ORDERABLES Final Re sult Performing Organization Address [facility] Co de Phone Number [address] [address] * Anti-Mitochondrial Antibody (AMA) (09/16/2017 8:15 AM EDT) MITOCHONDRIAL AB M2 <0.1 <0.1 (Negative) U [facility] DPT OF LAB MED AND PAT+ Blood 09/16/2017 8:15 AM EDT 09/16/2017 8:22 AM EDT Rigoberto Baugh MD LAB BLOOD ORDERABLES Final Re sult Performing Organization Address City[facility] Co de Phone Number [facility] DPT OF LAB MED AND PAT+ [address] [place] [address] documented in this encounter Visit Diagnoses Diagnosis Abnormal results of liver function studies- Primary Nonspecific abnormal results of liver function study Elevated liver enzymes Other nonspecific abnormal serum enzyme levels documented in this encounter Care Teams Moose Hunter Relationship Specialty Start Date End Date Joe Godoy MD [address] [place] [address] PCP - General 02/21/17 Jessica Wallace REGULATORY AFFAIRS STRATEGY SPECIALIST [address] [place] [address] [email or web address] Historical LMR Provider 02/21/17 Sam Ch MD [address] [place] [address] [address], [address] [place] [address] Historical LMR Provider 02/21/17 05/16/21 Jeo Godoy MD [address] [place] [address] Historical LMR Provider 02/21/17 08/23/21 Cassy Haas FNP [address] [place] [address]. 204, [address] [place] [address] Historical LMR Provider 02/21/17 05/16/21 Jessie Joseph MD [address] [place] [address] [address], [address] [place] [address] Historical LMR Provider 02/21/17 05/16/21 Jessie Arreola, CAROLE [address] [place] [address] Historical LMR Provider 02/21/17 2 Riky Verde MD [address] [facility] 201 [place] [address] Historical LMR Provider 02/21/17 2 Gabbi Yeager NP [address] [facility] 6 [place] [address] Historical LMR Provider 02/21/17 08/23/21 Joe Godoy MD [address] [place] [address] [email or web address] Insurance Assigned Provider 08/13/23 Lianne Nance CNM [address] [place] [address] [place] [address] Obstetrics 08/24/21 documented as of this encounter Additional Source Comments The information contained in this document represents components of the legal health record. It is not the complete legal health record.[facility]
--- OUTSIDE RECORDS SUMMARY | 2025-02-16 09:55 | XMS_ITS | Encounter Summary ---
Author Organization [facility] Address [address] [place] [address] Phone Care Team Providers Care Damage Prevention Coordinator Name Role Phone Jessica Wallace SEED POTATO CUTTER Unavailable [phone] Sam Ch MD Unavailable Joe Godoy MD Unavailable Cassy Haas MACHINING SUPERVISOR Unavailable Jessie Joseph MD Unavailable Jessie Arreola SEED POTATO CUTTER Unavailable [phone] Riky Verde MD Unavailable Gabbi Yeager SEED POTATO CUTTER Unavailable [phone] Joe Godoy MD Primary Care Provider [phone] Joe Godoy MD Unavailable Lianne Nance I CNM Unavailable Encounter Details Date Type Department Care Team (Latest Contact Info) Description 03/02/2018 Transcribe Orders [facility] [address] [place] [address] Damari eD La Garza PA-C [address] [place] [address] Elevated liver enzymes (Primary Dx) Social History Tobacco Use Types Packs/Day Years [...] Description 03/06/2025 9:30 AM EDT Office Visit [facility] Internal Medicine [address] [place], [place] [id number] Joe Godoy MD 40 [place], [place] [address] [email or web address] documented as of this encounter Visit Diagnoses Diagnosis Elevated liver enzymes- Primary Other nonspecific abnormal serum enzyme levels documented in this encounter Care Teams Damage Prevention Coordinator Relationship Specialty Start Date End Date Joe Godoy MD 40 [place] [address] PCP - General 02/21/17 Jessica Wallace NP [address] [place] [address] [email or web address] Historical LMR Provider 02/21/17 Sam Ch MD [address] [place] [address] [address], [address] [place] [address] Historical LMR Provider 02/21/17 05/16/21 Joe Godoy MD 40 [place], [place] [address] Historical LMR Provider 02/21/17 08/23/21 Waldo Cassy BrannonRANDOLPH 38 [facility]. 204, [address] [place] [address] Historical LMR Provider 02/21/17 05/16/21 Jessie Joseph MD 38 [place] [facility] [address], [address] [place] [address] Historical LMR Provider 02/21/17 05/16/21 Jessie Arreola, SEED POTATO CUTTER [address] [place] [address] 104 [place] [address] Historical LMR Provider 02/21/17 2 Riky Verde MD [address] [place] [address] 201 [place] [address] Historical LMR Provider 02/21/17 2 Gabbi Yeager NP 26 [facility] 6 [place] [address] Historical LMR Provider 02/21/17 08/23/21 Joe Godoy MD 40 [place] [address] Insurance Assigned Provider 08/13/23 Lianne Nance CNM [address] [place] [address] [place] [address] Obstetrics 08/24/21 documented as of this encounter Additional Source Comments The information contained in this document represents components of the legal health record. It is not the complete legal health record.[facility]
--- OUTSIDE RECORDS SUMMARY | 2025-02-16 09:55 | XMS_ITS | Encounter Summary ---
Author Organization [facility] Address [address] [facility] [address] [place] [address] Phone Care Team Providers Care Poultry Hatchery Man Name Role Phone Joe Godoy MD Primary Care Provider [phone] Joe Godoy MD Unavailable [phone] Lianne Nance I CN Unavailable [phone] Encounter Details Date Type Department Care Team (Late st Contact Info) Description 08/30/2022 Procedure Pass [facility], [address] [place] [address] Social History Tobacco Use Types Packs/Day Years Used Date Smoking Tobacco: Former Cigarettes 0.3 4 1 0 - 1993 Smokeless Tobacco: Never Alcohol Use Standard Drinks/Week Comments Yes 6 (1 standard drink = 0.6 oz pur e alcohol) Child or Family Care Answer Date Record ed Do you have problems with on e of the following making it difficult for you to work, study, or receive health care? No 08/30/2022 Education Answer Date Recorded Are you interested in help w ith more adult education (for example, completing high school, GED, job training, learning the Korean language, technical skills, or developing parenting skills)? No 08/30/2022 Food Answer Date Recorded Within the past 6 months we worried whether our food would run out before we got money to buy more. Never True 08/30/2022 Within the past 6 months the food we bought just didn't last and we didn't have enough money to get more. Never True Residential Stability Answer Date Recor ded What is your housing situation today? I have pat verma 08/30/2022 How many times have you move d in the past 12 months? Zero (I did not move) 08/30/2022 Paying for Meds Answer Date Recorded Do you have trouble paying for medicines? No 08/30/2022 Paying Utility Bills Answer Date Record ed Do you have trouble paying your heating or elect ricity bill? No 08/30/2022 Transportation Answer Date Recorded Has the lack of transportati on kept you from medical appointments or from getting medications? No 08/30/2022 Unemployment Answer Date Recorded Are you currently unemployed or working on a part-time or temporary basis, and looking for work? No 08/24/2021 Digital Access Answer Date Recorded No 08/30/2022 Yes 08/30/2022 Do you have reliable internet access at home? Ye s 08/30/2022 Do you have a device (e.g., phone, tablet, computer) with a working camera? Yes 08/30/2022 Comments No Sex and Gender Information Value Date Recorded Sex Assigned at Not on file Legal Sex Female 9:33 PM EDT Gender Identity Not on file Sexual Orientation Not on file documented as of this encounter Last Filed Vital Signs Vital Sign Reading Time Taken Comments Blood Pressure - - Pulse - - Temperature - - Respiratory Rate - - Oxygen Saturation - - Inhaled Oxygen Concentration - - Weight 74.8 kg (165 lb) 09/02/2022 4:08 PM EDT Height 162.6 cm (5' 4 ) 09/02/2022 4:08 PM EDT Body Mass Index 28.32 09/02/2022 4:08 PM EDT documented in this encounter Plan of Treatment Upcoming Encounters Date Type Department Care Team (Late st Contact Info) Description 03/06/2025 9:30 AM EDT Office Visit [facility] Internal Medicine [address] [place] [address] Joe Godoy MD 40 [place] [address] [email or web address] documented as of this encounter Visit Diagnoses Not on filedocumented in this encounter Additional Health Concerns Assessment Noted Time PHQ-9 Depression Total Score: 11 023 8:24 AM EDT PHQ-2 Depression Total Score: 3 08/31/19 23 8:24 AM EDT documented as of this encounter Care Teams Poultry Hatchery Man Relationship Specialty Start Date End Date Joe Godoy MD 40 [place] [address] PCP - General 02/21/17 Joe Godoy MD [address] [place] [address] Insurance Assigned Provider 08/13/23 Lianne Nance CNM [address] [place] [address] [place] [address] Obstetrics 08/24/21 documented as of this encounter Additional Source Comments The information contained in this document represents components of the legal health record. It is not the complete legal health record.[facility]
--- OUTSIDE RECORDS SUMMARY | 2025-02-16 09:55 | XMS_ITS | Encounter Summary ---
Author Organization [facility] Address [address] [place] [address] Phone Care Team Providers Care Voip Network Technician Name Role Phone Jessica Wallace BASKET MENDER Unavailable Sam Ch MD Unavailable Joe Godoy MD Unavailable Cassy Haas TOOL DESIGN DRAFTSPERSON Unavailable Jessie Joseph MD Unavailable Jessie Arreola BASKET MENDER Unavailable Riky Verde MD Unavailable Gabbi Yeager BASKET MENDER Unavailable [phone] Joe Godoy MD Primary Care Provider Joe Godoy MD Unavailable Lianne Nance I CNM Unavailable Encounter Details Date Type Department Care Team (Late st Contact Info) Description 08/30/2017 Procedure Pass [facility], [address] [address] Social History Tobacco Use Types Packs/Day Years [...] Upcoming Encounters Date Type Department Care Team ([facility] st Contact Info) Description 03/06/2025 9:30 AM EDT Office Visit [facility] Internal Medicine [address] [place] [address] Joe Godoy MD 40 [place] [address] documented as of this encounter Visit Diagnoses Not on filedocumented in this encounter Care Teams Voip Network Technician Relationship Specialty Start Date End Date Joe Godoy MD 40 [place] [address] PCP - General 02/21/17 Jessica Wallace NP [address] [place] [address] [email or web address] Historical LMR Provider 02/21/17 Sam Ch MD 38 [facility], [address], [address] [place] [address] Historical LMR Provider 02/21/17 05/16/21 Joe Godoy MD 40 [place] [address] Historical LMR Provider 02/21/17 08/23/21 Cassy Haas FNP 38 [facility], [address], [address] [place] [address] Historical LMR Provider 02/21/17 05/16/21 Jessie Joseph MD [address] [place] [address] 204, [address] [place] [address] Historical LMR Provider 02/21/17 05/16/21 Jessie Arreola, BASKET MENDER 21 [facility] 104 [place] [address] Historical LMR Provider 02/21/17 2 Riky Verde MD [address] [place] [address] 201 [place] [address] Historical LMR Provider 02/21/17 2 Gabbi Yeager NP 26 [facility] 6 [place] [address] Historical LMR Provider 02/21/17 08/23/21 Joe Godoy MD [address] [place] [address] Insurance Assigned Provider 08/13/23 Lianne Nance CNM [address] [place] [address] [place] [address] Obstetrics 08/24/21 documented as of this encounter Additional Source Comments The information contained in this document represents components of the legal health record. It is not the complete legal health record.[facility]
== END 2025-02-16 09:54 | disposition home or self-care (01) ==
LOC: HO.MAMMO 09:53
PROVIDERS: PCP Internal Medicine; Visit Provider Internal Medicine
DX: Z12.31 Encounter for screening mammogram for malignant neoplasm of breast (principal)
CPT/HCPCS: 77063; 77067

== ENCOUNTER → 2025-02-16 10:00 | Outpatient (BNV) | payer BC, SELFPAY | PROVIDERS: PCP Internal Medicine; Visit Provider Radiology Body Imaging | DX: Z12.31 Encounter for screening mammogram for malignant neoplasm of breast (principal) | CPT/HCPCS: 77063; 77067 ==